=== PATIENT | female | born 1960 | race Caucasian/White ===

== ENCOUNTER → 2018-07-18 | Outpatient (CLI) | payer BC, OTHER ==
[~2018-07-18] MED LIST: LISI1TAB10 PO
--- NOTE | 2018-07-19 08:49 | Diagnostic Imaging Report ---
INDICATION: Routine screening. COMPARISON: 06/29/2016. TECHNIQUE: 2D and 3D bilateral screening mammography was performed with CAD. FINDINGS: Scattered fibroglandular densities are identified bilaterally. Benign calcifications are identified bilaterally. There are intramammary lymph nodes in the outer left breast. No spiculated masses or malignant appearing microcalcifications are seen. The axillae are unremarkable. IMPRESSION: No mammographic features suspicious for malignancy are identified. ACR BI-RADS Category 2: Benign findings. Result letter will be mailed to the patient. Note: At least 10% of breast cancer is not imaged by mammography. Dictated by: Dictated on workstation # [id number]
== END ==
LOC: RAD 14:38
PROVIDERS: ATTEND Family Medicine
DX: Z12.31 Encounter for screening mammogram for malignant neoplasm of breast (principal)
CPT/HCPCS: 77067

== ENCOUNTER → 2021-11-17 | Outpatient (CLI) | payer BC, OTHER ==
[~2021-11-17] MED LIST changes: -LISI1TAB10 PO; +LISI1TAB48 PO
--- NOTE | 2021-11-17 13:54 | Diagnostic Imaging Report ---
PROCEDURE: US Renal Bilateral. TECHNIQUE: Multiple real-time grayscale images were obtained over the kidneys in various projections bilaterally. INDICATION: Abnormal renal function. COMPARISON: None FINDINGS: The right kidney measures 8.7 cm in length and the left measures 10.2 cm in length. There is no hydronephrosis. No masses or shadowing calculi are seen bilaterally. No free fluid is seen. The urinary bladder is mildly distended. No filling defects or debris are seen. Bilateral ureteral jets are noted. IMPRESSION: 1. Normal renal ultrasound. Dictated by: Dictated on workstation # [id number]
== END ==
LOC: RAD 12:00
PROVIDERS: ATTEND Family Medicine
DX: R94.4 Abnormal results of kidney function studies (principal)
CPT/HCPCS: 76770